=== PATIENT | male | born 1945 | race Caucasian/White ===

== ENCOUNTER → 2016-05-15 | Outpatient (CLI) | payer OTHER ==
[~2016-05-15] MED LIST: IBUP-238; MONT10TA2; OMEP20CA5; SIMV5TAB32
--- NOTE | 2016-05-17 08:18 | RSPPFT ---
DATE OF PROCEDURE: 05/15/16 COMMENTS: VOLUMES DYNAMIC: FVC and FEV1 normal. STATIC: VTG mildly reduced; RV and TLC normal. FLOWS: FEV1% and FEF 25-75 super normal. DIFFUSION: Mildly reduced. FLOW VOLUME LOOP: Mild restrictive configuration. IMPRESSION: Probable very mild restrictive ventilatory defect with no significant airways obstruction and a mild reduction in diffusion. No improvement post-bronchodilator.
== END ==
LOC: HRSP 09:05
PROVIDERS: ATTEND Internal Medicine
DX: J84.10 Pulmonary fibrosis, unspecified (principal)
CPT/HCPCS: 94060; 94620; 94726; 94729